=== PATIENT | male | born 1945 | race Caucasian/White ===

== ENCOUNTER 2016-09-15 02:14 | Emergency (ER) | payer MEDICARE ==
[~2016-09-15 02:14] MED LIST: ELAVIL-DPS25 MG PO; ELIQUIS5 MG PO; GLUCOPHAGE-DPS500 MG PO; GLUCOTROL DPS5 MG PO; KLOR-CON M2020 ME1 PO; LASIX DPS40 MG PO; NEURONTIN DPS300 MG PO; NORCO 5-325 TA1 EACH PO; PROZAC DPS20 MG PO
--- NOTE | 2016-09-15 19:08 | ER ---
ADMIT: 09/15/2016 RM/LOC: ER [facility] MR#: [id number] [address] [facility] [address] [place], [place] [address] SHO NIELSON [address] [address] Emergency Room Report SEX: M AGE: 70 : 1945 DATE: 09/15/2016 HISTORY OF PRESENT ILLNESS: The patient is a 70-year-old male with a past medical history of coronary artery disease, diabetes, status post stent in bilateral lower extremities and in the heart, came with a long history of chronic bilateral lower extremity diabetic ulcers, healing and diabetic neuropathy in bilateral lower extremity, for which has been on multiple medications, gabapentin and Tylenol No. 3. The patient came to the ER with the increased sensation of the burning in bilateral lower extremity, which is very similar to previous neuropathic pain, but the patient states he has stopped taking the Tylenol No. 3 because of the constipation. The patient denies any fever, chills, chest pain, shortness of breath, headaches, neck pain, neck stiffness, new weakness, or new numbness. PHYSICAL EXAMINATION: HEAD and NECK: Noncontributory. CHEST: Bilateral equal breath sounds without any crackles. HEART: Normal S1, S2 without any murmurs. ABDOMEN: Soft. EXTREMITIES: On lower extremity, the patient had chronic ulcers with granulation tissue over it without any signs of inflammation or infection. Normal bilateral equal peripheral pulses. Decreased sensation in lower extremity, which is baseline for the patient. The patient is at the baseline of the neuropathic pain and was not compliant with his medication. The patient received Percocet in the ER, pain was moderately controlled. The patient was discharged to home to be followed up by the primary care doctor as needed. The patient was stable and agreed with the plan. Anoop Horne MD/ tricia JOB #: [id number] CC: Anoop Horne MD, Attending Physician Fitz Monaco MD, Family Physician
== END 2016-09-15 02:55 | disposition home or self-care (01) ==
LOC: ER 02:14
DX: E11.40 Type 2 diabetes mellitus with diabetic neuropathy, unspecified (principal); M79.605 Pain in left leg; M79.604 Pain in right leg; Z86.79 Personal history of other diseases of the circulatory system

== ENCOUNTER 2016-10-20 22:45 | Emergency (ER) | payer MEDICARE ==
--- NOTE | 2016-10-21 05:56 | ER ---
ADMIT: 10/20/2016 RM/LOC: ER [facility] MR#: [id number] [address] [facility] [address] [place], [place] [address] SHO NIELSON [address] [address] Emergency Room Report SEX: M AGE: 71 : 1945 DATE: 10/20/2016 HISTORY OF PRESENT ILLNESS: The patient is a 71-year-old male with past medical history of diabetes, coronary artery disease, peripheral vascular disease, multiple stents in the heart x2, diabetic neuropathy and stasis ulcer in lower extremities, and aortic aneurysm, came to the ER with chief complaint of increased swelling in the right leg and also increased pain. The patient states he was on Eliquis, 4 days ago he stopped in anticipation of the tooth extraction on Tuesday. The patient also reported mild increase in shortness of breath for the last 2 days. PHYSICAL EXAMINATION: The patient was signed out to me. Please refer to the main dictation for more information. VITAL SIGNS: In the ER, the patient had blood pressure of 130/68, heart rate was 92, and respiratory rate was 20, and temperature was 99.7, the patient was in no obvious pain or distress, sitting in the bed. HEAD AND NECK: Noncontributory. LUNGS: Decreased airflow bilaterally, shallow breathing, and also questionable very mild crackles at the base of the posterior left lung. HEART: No gallops and no murmurs. ABDOMEN: Nontender. No guarding, no rebound and was soft. EXTREMITIES: The patient had stasis ulcer on the anterior legs bilaterally. On the right side, there are some scabs, healing granulation tissue, with some surrounding erythema around it and more swelling comparing the left leg. The patient had normal capillary filling and peripheral pulses. The patient already had Doppler ultrasound of the right lower extremity, which was negative for DVT, the patient was signed out to follow up on the CT angio of the chest. The patient already had one set of troponin and EKG, which were both negative. CT angio of the chest was negative, read by radiologist, for PE or other pathologies other than mild to moderate congestion. BNP was in the range of 600 and the 2nd set of troponin I was also negative. The patient will receive Zosyn in the previous shift IV, I re-examined the patient, was in no obvious pain or distress, the patient can be discharged to home with antibiotics and follow up with the primary doctor. The patient was advised to call Dr. Monaco about the fact that he stopped Eliquis today and was encouraged to also follow up with Dr. Monaco for right leg swelling. The patient was informed that there could be a possibility of repeat Doppler ultrasound in a week per discretion of primary care doctor, and he understood and acknowledged it. The patient was discharged to home. Vasile Horne MD/ tricia JOB #: [id number] CC: Vasile Horne MD, Attending Physician Fitz Monaco MD, Family Physician
--- NOTE | 2016-10-22 13:12 | ER ---
ADMIT: 10/20/2016 RM/LOC: ER [facility] MR#: [id number] [address] [facility] [address] [place], [place] [address] SHO NIELSON [address] [address] Emergency Room Report SEX: M AGE: 71 : 1945 DATE: 10/20/2016 ADDENDUM: CHIEF COMPLAINT: Shortness of breath and right lower leg swelling. HISTORY OF PRESENT ILLNESS: A 71-year-old male, who presents to the ED with 4 days' duration of increased swelling in his right lower leg and shortness of breath. The patient states that he was anticipating attending a free dental clinic this weekend and had previously been denied secondary to being on blood thinners. He stopped taking his blood thinners approximately 4 days ago when he noticed some increased swelling in his right lower leg and over the past 2 days has noticed some increased shortness of breath. He states that he has some increased pain and redness in the right lower leg. He does have a past medical history significant for lower leg diabetic ulcers and venous insufficiency. He has a history of coronary artery disease, diabetes controlled with insulin and oral. He is status post bilateral lower extremity stents and cardiac stents x2. He is on multiple medications for diabetes and blood pressure control. The patient also complains of fever, chills, sweating, and generalized chest discomfort with some pain with breathing. COURSE IN THE EMERGENCY ROOM: The patient was seen and examined. Concern was to rule out DVT and PE. Lower leg Doppler was performed and found to be negative. CTA is pending at this time. Labs were drawn significant for white count at 12,000, hemoglobin is 12, hematocrit 37.7, and platelets 310. Lactic acid was elevated at 2.3. CMP shows sodium 138, potassium 4.7, chloride 105, CO2 of 24, glucose 298, creatinine 1.0. Troponin was less than 0.015. The patient was given a dose of Zosyn secondary to the increased redness, elevated white count, and lactic acid. Concern for some lower leg cellulitis due to the pending labs and CTA. I did discuss this patient with Dr. Horne, who will decide final disposition pending results of CTA. YESSENIA Kaufman / Vasile Horne MD / modl JOB #: [id number] CC: Vasile Horne MD, Attending Physician Fitz Monaco MD, Family Physician
== END 2016-10-21 03:31 | disposition home or self-care (01) ==
LOC: ER 22:45
DX: L03.116 Cellulitis of left lower limb (principal); I83.029 Varicose veins of left lower extremity with ulcer of unspecified site; E11.9 Type 2 diabetes mellitus without complications; Z79.4 Long term (current) use of insulin; Z79.82 Long term (current) use of aspirin; Z79.899 Other long term (current) drug therapy

== ENCOUNTER 2016-11-20 12:03 | Emergency (ER) | payer MEDICARE ==
--- NOTE | 2016-11-27 08:39 | ER ---
ADMIT: 11/20/2016 RM/LOC: ER [facility] MR#: [id number] [address] [place], [place] [address] SHO NIELSON [address] [place] [address] Emergency Room Report SEX: M AGE: 71 : 1945 DATE: 11/20/2016 Mr. Nielson is a 71-year-old male, complaining of constipation. He has had no bowel movement for 4 days. He complains of his stomach being very distended and the reason for that he says he has a couple wounds in his legs. He has wound care dressing them, but apparently he has taken Tylenol with codeine and has been able to get some [id number] medication but unable to evacuate. His vitals within normal limits. He was able to have a bowel movement after he received Relistor a saline enema. He was discharged with instructions to follow up his primary provider. Continue MiraLax at home, hydration. DIAGNOSES: At this time. 1. Constipation. 2. Abdominal distention. YESSENIA Stone / David Dixon MD / fallonl JOB #: [id number] CC: David Dixon MD, Attending Physician Fitz Monaco MD, Family Physician
== END 2016-11-20 14:26 | disposition home or self-care (01) ==
LOC: ER 12:03
DX: K59.00 Constipation, unspecified (principal); R14.0 Abdominal distension (gaseous); E11.9 Type 2 diabetes mellitus without complications; Z79.4 Long term (current) use of insulin; Z95.5 Presence of coronary angioplasty implant and graft; Z79.84 Long term (current) use of oral hypoglycemic drugs; Z79.01 Long term (current) use of anticoagulants; Z79.899 Other long term (current) drug therapy

== ENCOUNTER → 2016-11-23 | Outpatient (CLI) | payer MEDICARE | END | disposition home or self-care (01) | LOC: RAD.S 15:45 | DX: M25.562 Pain in left knee (principal); M79.642 Pain in left hand; M25.462 Effusion, left knee ==

== ENCOUNTER 2017-01-05 01:22 | Emergency (ER) | payer MEDICARE ==
--- NOTE | 2017-01-05 03:47 | ER ---
ADMIT: 01/05/2017 RM/LOC: ER [facility] MR#: [id number] [address] [facility] [address] [place], [place] [address] SHO NIELSON [address] [address] Emergency Room Report SEX: M AGE: 71 : 1945 DATE: 01/05/2017 The patient is a 71-year-old male with chronic venous stasis disease and ulcers, noncompliant with therapy, has not been taking his gabapentin as prescribed, complains of his typical pain since removing all dressings from his wounds 2 weeks ago. Exam remarkable for nontoxic, afebrile, obese male, with chronic venous stasis disease and ulcers. No evidence of acute cellulitis. Wounds actually looked the best that I have seen since May 2016 when I last saw him. Reviewed the patient's medications and informed them that there is nothing we can do that we have not artery tried in the past, but due to his compliance issues, it is up to him to make some decisions. He ultimately consented and allowed his legs to be wrapped. I instructed him to increase gabapentin to 600 mg b.i.d. Creatinine 0.9. Toradol 15 mg IV push. Follow up Dr. Monaco as needed. Phi Powell MD/ tricia JOB #: [id number] CC: Phi Powell MD, Attending Physician Fitz Monaco MD, Family Physician Fitz Monaco MD
== END 2017-01-05 02:30 | disposition home or self-care (01) ==
LOC: ER 01:22
DX: I87.2 Venous insufficiency (chronic) (peripheral) (principal); E66.9 Obesity, unspecified; I73.9 Peripheral vascular disease, unspecified; I10 Essential (primary) hypertension; I25.10 Atherosclerotic heart disease of native coronary artery without angina pectoris; E78.5 Hyperlipidemia, unspecified; E11.40 Type 2 diabetes mellitus with diabetic neuropathy, unspecified; Z88.5 Allergy status to narcotic agent; Z98.890 Other specified postprocedural states

== ENCOUNTER 2017-03-28 00:26 | Emergency (ER) | payer MEDICARE | END 2017-03-28 01:20 | disposition home or self-care (01) | DX: I87.2 Venous insufficiency (chronic) (peripheral) (principal); E11.40 Type 2 diabetes mellitus with diabetic neuropathy, unspecified; I73.9 Peripheral vascular disease, unspecified; I25.10 Atherosclerotic heart disease of native coronary artery without angina pectoris; I10 Essential (primary) hypertension; E78.5 Hyperlipidemia, unspecified; F41.9 Anxiety disorder, unspecified; F32.9 Major depressive disorder, single episode, unspecified; Z95.5 Presence of coronary angioplasty implant and graft; Z98.890 Other specified postprocedural states; Z79.84 Long term (current) use of oral hypoglycemic drugs; Z79.01 Long term (current) use of anticoagulants; Z79.82 Long term (current) use of aspirin; Z79.899 Other long term (current) drug therapy ==

== ENCOUNTER 2017-03-30 18:27 | Emergency (ER) | payer MEDICARE ==
--- NOTE | 2017-04-02 06:04 | ER ---
ADMIT: 03/30/2017 RM/LOC: ER [facility] MR#: [id number] [address] [facility] [address] [place], [place] [address] SHO NIELSON [address] [address] Emergency Room Report SEX: M AGE: 71 : 1945 DATE: 03/30/2017 HISTORY OF PRESENT ILLNESS: This is a 71-year-old male presents to emergency room with some bowel problems for about 4 days. He has been in the past given lactulose to help with his symptoms. He does have an appointment with Dr. Bhat, but he could not wait. His condition became worse tonight. PAST MEDICAL HISTORY: He has a history of diabetes, hypertension, CAD. He has had an appendectomy, cholecystectomy, and stents. ALLERGIES: HE HAS NO ALLERGIES TO MEDICATION. PHYSICAL EXAMINATION: Conducted by Hayden Alvarez. Blood pressure 134/39, heart rate 92, respirations 18, temp is 98.2, O2 sats 91%. CLINICAL IMPRESSION: Constipation, [id number]. Several enemas given with good results at the end. Increase fiber. Follow up with Dr. Bhat as per appointment. May continue MiraLax and lactulose. Follow up with home and increase fluids. On my examination, the patient does have a distended abdomen, but bowel sounds are normal. Moderately anxious. Heart and lungs clear. Oriented x4. The patient discharged. YESSENIA Stone / Jose Alberto Lloyd MD / tricia JOB #: [id number] CC: Yordan Méndez MD, Attending Physician UNKNOWN, Family Physician
== END 2017-03-30 23:25 | disposition home or self-care (01) ==
LOC: ER 18:27
PROC: BT20ZZZ Computerized Tomography (CT Scan) of Bladder (ICD-10-PCS; principal; 2017-03-30)
DX: K59.00 Constipation, unspecified (principal); E11.9 Type 2 diabetes mellitus without complications; I10 Essential (primary) hypertension; I25.10 Atherosclerotic heart disease of native coronary artery without angina pectoris; Z79.899 Other long term (current) drug therapy; Z90.49 Acquired absence of other specified parts of digestive tract; Z95.5 Presence of coronary angioplasty implant and graft; Z79.84 Long term (current) use of oral hypoglycemic drugs; Z79.82 Long term (current) use of aspirin; Z79.01 Long term (current) use of anticoagulants